=== PATIENT | female | born 1985 | race Asian ===

== ENCOUNTER → 2018-06-27 | Outpatient (CLI) | payer OTHER ==
[~2018-06-27] MED LIST: OMNIPAQUE 350 MG/ML, 150 ML BOTTLE ONE
== END | disposition home or self-care (01) ==
LOC: RAD 15:30
PROVIDERS: ATTEND Radiology Diagnostic Radiology
DX: D48.1 Neoplasm of uncertain behavior of connective and other soft tissue (principal)
CPT/HCPCS: 70491; 71260; Q9967

== ENCOUNTER → 2019-09-19 | Outpatient (CLI) | payer OTHER | END | disposition home or self-care (01) | LOC: CFH 13:07 | PROVIDERS: ATTEND Internal Medicine Hematology & Oncology | DX: I82.C11 Acute embolism and thrombosis of right internal jugular vein (principal); R22.1 Localized swelling, mass and lump, neck; Z79.52 Long term (current) use of systemic steroids | CPT/HCPCS: 70491; 71260; 74177; Q9967 ==